=== PATIENT | female | born 1980 | race American Indian/Alaskan Native ===

== ENCOUNTER 2019-09-26 07:39 | Emergency (ER) | payer OTHER ==
--- NOTE | 2019-09-26 09:19 | Emergency Department Report ---
ED Syncope HPI - General Chief Complaint: Syncope Stated Complaint: FALL Time Seen by Provider: 09/26/19 09:07 - History of Present Illness Initial Comments: Patient is a 38 years old female came from a psychiatric facility for evaluation for one episode of syncope that happened this morning. Patient stated that she was talking on the phone and started feeling dizzy and nauseous and then she found herself on the floor. Patient presented with 0.5 cm superficial laceration to the forehead. Patient is currently alert, oriented 3 in no acute distress. Patient stated that she was started on Seroquel last night. Patient denied any chest pain, shortness of breath, abdominal pain and vomiting. No weakness numbness or tingling sensation. Timing/Prior Episodes: no prior history, single episode today Loss of Consciousness: no loss of consciousness Current Symptoms: back to normal - Related Data Allergies/Adverse Reactions: Allergies aspirin Allergy (Verified 09/26/19 08:22) Unknown Sulfa (Sulfonamide Antibiotics) Allergy (Verified 09/26/19 08:22) Unknown Home Medications: Ambulatory Orders Albuterol Sulfate [Ventolin HFA] 2 puff IH Q4H PRN #1 hfa.aer.ad 05/29/16 Azithromycin [Zithromax Z-DEXTER] 250 mg PO DAILY #6 tablet 05/29/16 Promethazine /Codeine [Phenergan/Codeine 6.25-10 mg/5 ml] 5 ml PO Q6H PRN #90 udc 05/29/16 predniSONE [Deltasone] 20 mg PO QDAY #5 tab 05/29/16 ED Review of Systems ROS: Stated complaint: FALL Other details as noted in HPI Comment: All other systems reviewed and negative Constitutional: denies: chills, fever Cardiovascular: denies: chest pain, palpitations, dyspnea on exertion Gastrointestinal: denies: abdominal pain, nausea, vomiting Genitourinary: denies: urgency, dysuria Musculoskeletal: denies: back pain Neurological: headache ED Past Medical Hx - Past Medical History Previous Medical History?: Yes Hx GERD: Yes Hx Asthma: Yes - Surgical History Past Surgical History?: Yes Additional Surgical History: upper gi - Social History Smoking Status: Never Smoker Substance Use Type: None - Medications Home Medications: Home Medications Medication Instructions Recorded Confirmed Last Taken Type Albuterol Sulfate [Ventolin HFA] 2 puff IH Q4H PRN #1 hfa.aer.ad 05/29/16 Unknown Rx Azithromycin [Zithromax Z-DEXTER] 250 mg PO DAILY #6 tablet 05/29/16 Unknown Rx Promethazine /Codeine 5 ml PO Q6H PRN #90 udc 05/29/16 Unknown Rx [Phenergan/Codeine 6.25-10 mg/5 ml] predniSONE [Deltasone] 20 mg PO QDAY #5 tab 05/29/16 Unknown Rx ED Physical Exam - General Limitations: No Limitations General appearance: alert, in no apparent distress - Head Head exam: Present: atraumatic, normocephalic, normal inspection - Eye Eye exam: Present: normal appearance - ENT ENT exam: Present: normal exam, normal orophraynx, mucous membranes moist - Neck Neck exam: Present: normal inspection, full ROM. Absent: tenderness, meningismus, lymphadenopathy, thyromegaly - Respiratory Respiratory exam: Present: normal lung sounds bilaterally - Cardiovascular Cardiovascular Exam: Present: regular rate, normal rhythm, normal heart sounds - GI/Abdominal GI/Abdominal exam: Present: soft, normal bowel sounds. Absent: distended, tenderness, guarding, organomegaly, mass, bruit, pulsatile mass, hernia - Extremities Exam Extremities exam: Present: normal inspection, full ROM, normal capillary refill. Absent: pedal edema, calf tenderness - Back Exam Back exam: Present: normal inspection, full ROM. Absent: CVA tenderness (R), CVA tenderness (L), muscle spasm, paraspinal tenderness, vertebral tenderness - Neurological Exam Neurological exam: Present: alert, oriented X3, CN II-XII intact, normal gait, reflexes normal - Psychiatric Psychiatric exam: Present: normal mood - Skin Skin exam: Present: warm, intact, normal color ED Course Vital Signs 09/26/19 09/26/19 09/26/19 08:18 08:22 08:30 Temperature 98.1 F Pulse Rate 60 60 64 Respiratory 13 11 L 14 Rate Blood Pressure 113/59 113/59 O2 Sat by Pulse 100 92 Oximetry 09/26/19 09/26/19 09/26/19 08:33 09:00 09:30 Temperature Pulse Rate 67 70 Respiratory 12 12 16 Rate Blood Pressure 104/66 104/66 O2 Sat by Pulse 100 100 100 Oximetry 09/26/19 10:18 Temperature Pulse Rate Respiratory Rate Blood Pressure 104/66 O2 Sat by Pulse 100 Oximetry ED Medical Decision Making - Lab Data Result diagrams: 09/26/19 09:57 09/26/19 09:57 - EKG Data -: EKG Interpreted by Me EKG shows normal: sinus rhythm Rate: normal - EKG Data Interpretation: no acute changes - Radiology Data Radiology results: report reviewed - Medical Decision Making Patient is a 38 years old female came from a psychiatric facility for evaluation for one episode of syncope that happened this morning. Patient stated that she was talking on the phone and started feeling dizzy and nauseous and then she found herself on the floor. Patient presented with 0.5 cm superficial laceration to the forehead. Patient is currently alert, oriented 3 in no acute distress. Patient stated that she was started on Seroquel last night. Patient denied any chest pain, shortness of breath, abdominal pain and vomiting. No weakness numbness or tingling sensation. Patient remained stable in the ER was no other syncopal episodes. EKG is unremarkable. CT brain is negative for acute finding. Labs reviewed and is unremarkable. Patient advised to follow-up with her primary care physician in the next 2-3 days and to return to the ER if she develops any new symptoms. Critical care attestation.: If time is entered above; I have spent that time in minutes in the direct care of this critically ill patient, excluding procedure time. ED Disposition Clinical Impression: Syncope Disposition: [id number] PSY HOSP/PSY UNIT Is pt being admited?: No Condition: Stable Instructions: Syncope (ED)
[2019-09-26 10:19] LABS: Basophils # (Auto) 0.1 K/mm3 (0.0-0.1); Basophils % (Auto) 0.7 % (0.0-1.8); Eosinophils % (Auto) 0.6 % (0.0-4.3); Hematocrit 36.6 % (30.3-42.9); Hemoglobin 12.1 gm/dl (10.1-14.3); Lymphocytes % (Auto) 26.2 % (13.4-35.0); Mean Corpuscular HGB Conc 33 % (30-34); Mean Corpuscular Volume 82 fl (79-97); Monocytes # (Auto) 0.4 K/mm3 (0.0-0.8); Monocytes % (Auto) 5.2 % (0.0-7.3); Platelet Count 397 K/mm3 (140-440); Red Blood Count 4.48 M/mm3 (3.65-5.03); Red Cell Distribution Width 15.6 % (13.2-15.2)
[2019-09-26] MEDS ORDERED: ACETAMINOPHEN 500 MG TAB PO ONE (10:43)
[2019-09-26 10:44] LABS: BUN/Creatinine Ratio 9; Blood Urea Nitrogen 6 mg/dL (7-17); Calcium 9.8 mg/dL (8.4-10.2); Hemolysis Index 6
[2019-09-26] MEDS ORDERED: ACETAMINOPHEN 500 MG TAB ONE (10:45)
--- NOTE | 2019-09-26 11:32 | Cat Scan Report ---
CT HEAD WITHOUT CONTRAST INDICATION / CLINICAL INFORMATION: Syncope. TECHNIQUE: All CT scans at this location are performed using CT dose reduction for ALARA by means of automated e xposure control. COMPARISON: None available. FINDINGS: HEMORRHAGE: No evidence of intracranial hemorrhage or extra-axial fluid collection. EXTRA-AXIAL SPACES: Cortical sulci, sylvian fissures and basilar cisterns have an unremarkable appear ance. VENTRICULAR SYSTEM: The ventricular system is of normal size and configuration. CEREBRAL PARENCHYMA: No areas of abnormal brain parenchymal attenuation are identified. There is no i ndication of recent infarction. MIDLINE SHIFT OR HERNIATION: There is no mass effect. CEREBELLUM / BRAINSTEM: Brainstem and cerebellum have an unremarkable appearance. INTRACRANIAL VESSELS:No abnormalities are identified on this noncontrast head CT. ORBITS: visualized portions of the orbits have an unremarkable appearance. SOFT TISSUES of HEAD: No significant abnormality. CALVARIUM: Evaluation of bone windows reveals no abnormalities. PARANASAL SINUSES / MASTOID AIR CELLS: Paranasal sinuses are free from inflammatory mucosal disease. Mastoid air cells are normally pneumatized. ADDITIONAL FINDINGS: None. IMPRESSION: 1. No acute intracranial abnormality. Signer Name: Fadi Merritt MD Signed: 09/26/2019 11:27 AM Workstation Name: [id number]
[2019-09-26] MEDS ORDERED: NEOMY 3.5 MG/BACIT 400 UNITS/POLY B 5000 UNITS/GM OINT PACKET TP ONE (11:55)
[2019-09-26] MEDS ORDERED: IBUPROFEN 600 MG TAB PO ONE (11:55)
[2019-09-26 12:27] VITALS: BP 103/55
== END 2019-09-26 12:25 ==
LOC: ED 07:39
DX: R55 Syncope and collapse (principal); K21.9 Gastro-esophageal reflux disease without esophagitis; J45.909 Unspecified asthma, uncomplicated; Z79.899 Other long term (current) drug therapy; Z88.2 Allergy status to sulfonamides; Z88.6 Allergy status to analgesic agent
CPT/HCPCS: 36415; 70450; 80048; 84703; 85025; 93005; 93010; A6250